=== PATIENT | female | born 1990 | race African-American/Black ===

== ENCOUNTER 2019-10-06 02:45 | Emergency (ER) | payer BC ==
[2019-10-06] MEDS ORDERED: Ondansetron 4 MG/2 ML SDV IVPUSH ONE (03:21)
[2019-10-06] MEDS ORDERED: Lactated Ringers 1,000 ML IV ONE (03:21)
[2019-10-06 03:44] LABS: BLOOD UREA NITROGEN,BUN 11 mg/dL (7.0-18.0); CARBON DIOXIDE,CO2 25.1 mmol/L (21.0-32.0); CHLORIDE,CL 101 mmol/L (98-107); GLUCOSE RANDOM 100 mg/dL (74-106); POTASSIUM,K 3.9 mmol/L (3.5-5.1); SODIUM,NA 136 mmol/L (136-145)
--- NOTE | 2019-10-06 03:45 | EDM.PDOC ---
ED HPI GENERAL MEDICAL PROBLEM - General Chief Complaint: Gastrointestinal Problem Stated Complaint: FEELS WEEK Time Seen by Provider: 10/06/19 02:47 Source of Information: Reports: Patient History Limitations: Reports: No Limitations - History of Present Illness INITIAL COMMENTS - FREE TEXT/NARRATIVE: 28-year-old female with history of hypertension, A2, GA 4 weeks presents feeling nauseous and vomiting for 2 days. She feels like she wants to pass out. She has had 6 episodes of nonbloody vomitus over the last 2 days. She denies fever, chills, abdominal pain, vaginal bleeding, pelvic pain, dysuria, chest pain, shortness of breath, palpitations, back pain, sore throat, runny nose, headache. She does admit to having chills. She has yet to see Kenya Simms for her . She has not taking any medications for her vomiting. ROS: A 10-point review of systems, other than pertinent positives and negatives as stated per HPI, is otherwise negative Past medical history: No additional pertinent history Past Surgical history: No additional pertinent history Social history: No additional pertinent history Family history: No additional pertinent history PHYSICAL EXAM General: AOx4, GCS = 15, No distress HEENT: dry mucous membrane Neck: supple, no meningismus, no Kernig or Brudzinski Cardiac: S1S2 RRR Respiratory: CTAB, no crackles or rales, no wheezing Abdomen: Soft, nontender, no rebound or guarding, nondistended, no pulsatile mass. Back: nontender Musculoskeletal: NVI distally, no deformity Neuro: No focal deficits, CN 2 - 12 WNL. - Related Data Allergies Allergy/AdvReac Type Severity Reaction Status Date / Time seafoods Allergy Swelling Uncoded 10/06/19 03:08 Home Meds: Home Meds Acetaminophen [Tylenol Extra Strength] 500 mg PO Q4H PRN #30 tab 10/16/13 [Rx] Losartan/Hydrochlorothiazide [Losartan-HCTZ 50-12.5 MG] 1 mg PO DAILY 10/06/19 [History] Ondansetron [Zofran ODT] 4 mg PO Q6H PRN #12 tab.dis 10/06/19 [Rx] Past Medical History - Past Health History Medical/Surgical History: Denies Medical/Surgical History Cardiovascular History: Reports: Hypertension Social & Family History - Tobacco Use Smoking Status *Q: Never Smoker Second Hand Smoke Exposure: No - Caffeine Use Caffeine Use: Reports: None ED ROS GENERAL - Review of Systems Review Of Systems: Comprehensive ROS is negative, except as noted in HPI. ED EXAM - Physical Exam Exam: See Below (see dictation) ED DELIVERY OF - Related Past History Related Past History: HTN Course - Vital Signs Last Recorded V/S: Last Vital Signs Temp 97.8 F 10/06/19 03:05 Pulse 77 10/06/19 04:06 Resp 16 10/06/19 04:06 BP 140/80 10/06/19 04:06 Pulse Ox 98 10/06/19 04:06 Orthostatic Blood Pressure [ 143/101 Standing] Orthostatic Blood Pressure [ 156/88 Sitting] Orthostatic Blood Pressure [ 147/97 Supine] - Orders/Labs/Meds Orders: Active Orders 24 hr Category Date Time Status Cardiac Monitoring [RC] . DIRECTED Care 10/06/19 02:48 Active Orthostatic Vital Signs [RC] ASDIRECTED Care 10/06/19 02:48 Active Pulse Oximetry [RC] ASDIRECTED Care 10/06/19 02:48 Active Labs: Laboratory Tests 10/06/19 10/06/19 10/06/19 Range/Units 03:15 03:15 04:20 WBC 14.12 H (4.0-11.0) K/uL RBC 4.66 (4.30-5.90) M/uL Hgb 12.1 (12.0-16.0) g/dL Hct 33.8 L (36.0-46.0) % MCV 72.5 L (80.0-98.0) fL MCH 26.0 L (27.0-32.0) pg MCHC 35.8 (31.0-37.0) g/dL RDW Std Deviation 42.6 (28.0-62.0) fl RDW Coeff of Zeke 16 H (11.0-15.0) % Plt Count 285 (150-400) K/uL MPV 10.30 (7.40-12.00) fL Neut % (Auto) 73.9 (48.0-80.0) % Lymph % (Auto) 17.9 (16.0-40.0) % Lamb % (Auto) 6.9 (0.0-15.0) % Eos % (Auto) 1.0 (0.0-7.0) % Baso % (Auto) 0.3 (0.0-1.5) % Neut # (Auto) 10.4 H (1.4-5.7) K/uL Lymph # (Auto) 2.5 H (0.6-2.4) K/uL Lamb # (Auto) 1.0 H (0.0-0.8) K/uL Eos # (Auto) 0.1 (0.0-0.7) K/uL Baso # (Auto) 0.0 (0.0-0.1) K/uL Nucleated RBC % 0.0 /100WBC Nucleated RBCs # 0 K/uL Sodium 136 (136-145) mmol/L Potassium 3.9 (3.5-5.1) mmol/L Chloride 101 (98-107) mmol/L Carbon Dioxide 25.1 (21.0-32.0) mmol/L BUN 11 (7.0-18.0) mg/dL Creatinine 0.9 (0.6-1.0) mg/dL Est Cr Clr Drug Dosing 82.25 mL/min Estimated GFR (MDRD) > 60.0 ml/min Glucose 100 (74-106) mg/dL Calcium 9.9 (8.5-10.1) mg/dL Total Bilirubin 0.3 (0.2-1.0) mg/dL AST 9 L (15-37) IU/L ALT 14 (14-63) IU/L Alkaline Phosphatase 62 (46-116) U/L Total Protein 7.5 (6.4-8.2) g/dL Albumin 3.6 (3.4-5.0) g/dL Globulin 3.9 (2.6-4.0) g/dL Albumin/Globulin Ratio 0.9 (0.9-1.6) Urine Color YELLOW Urine Appearance CLEAR Urine pH 6.5 (5.0-8.0) Ur Specific [place] 1.010 (1.001-1.035) Urine Protein NEGATIVE (NEGATIVE) mg/dL Urine Glucose (UA) NEGATIVE (NEGATIVE) mg/dL Urine Ketones NEGATIVE (NEGATIVE) mg/dL Urine Occult Blood NEGATIVE (NEGATIVE) Urine Nitrite NEGATIVE (NEGATIVE) Urine Bilirubin NEGATIVE (NEGATIVE) Urine Urobilinogen 0.2 (<2.0) EU/dL Ur Leukocyte Esterase NEGATIVE (NEGATIVE) Urine RBC 0-1 (0-2/HPF) Urine WBC 0-1 (0-5/HPF) Ur Epithelial Cells RARE (NONE-FEW) Urine Bacteria RARE (NEGATIVE) Meds: Medications Discontinued Medications Generic Name Dose Route Start Last Admin Trade Name Freq PRN Reason Stop Dose Admin Lactated Ringer's 1,000 mls @ 999 mls/hr 10/06/19 03:21 10/06/19 03:30 Ringers, Lactated IV 10/06/19 04:21 999 mls/hr .BOLUS ONE Administration Ondansetron HCl 4 mg 10/06/19 03:21 10/06/19 03:30 Zofran IVPUSH 10/06/19 03:22 4 mg ONETIME ONE Administration - Re-Assessments/Exams Free Text/Narrative Re-Assessment/Exam: 10/06/19 04:18 I reassessed the patient, who is feeling much better after IV fluids and Zofran. Their vitals are stable at this time. Their MAP = 100, shock index between 0.6, which is normal. 10/06/19 04:50 After IV fluids in the ER, she improved and is currently stable for discharge. She has not vomited in the ER. I performed a repeat exam and did not appreciate new abnormal findings. Patient exhibits normal vital signs and has a normal gait on road test. I advised the patient to return to the ER for reevaluation if symptoms worsened, including fever, worsening pain, or any other worrisome symptoms. I instructed the patient to follow up with her ALARM INVESTIGATOR within 2-3 days. MEDICAL DECISION MAKING: I reviewed the patients past medical records, lab and radiographic findings. I discussed the case with the patient. My differential diagnosis included: Dehydration, electrolyte abnormality, hyperemesis gravidarum, UTI. Patient exhibited leukocytosis, likely secondary to acute stress from vomiting. She has no fever, tachycardia or other signs of SIRS. Her urine did not show a UTI. Her MAP after IV fluids = 100, her shock index is 0.6, which is within normal range. I do not suspect need for further work-up at this time. Departure - Departure Time of Disposition: 04:50 Disposition: Home, Self-Care 01 Condition: Good Clinical Impression: Vomiting, First trimester - Discharge Information *PRESCRIPTION DRUG MONITORING PROGRAM REVIEWED*: Not Applicable *COPY OF PRESCRIPTION DRUG MONITORING REPORT IN PATIENT JUANA: Not Applicable Prescriptions: Ondansetron [Zofran ODT] 4 mg PO Q6H PRN #12 tab.dis PRN Reason: Vomiting Instructions: First Trimester of , [id number], Nausea and Vomiting, Adult, [id number] Referrals: Esau Dueñas MD [Physician] - 2 Weeks Forms: ED Department Discharge Additional Instructions: The need for follow-up, as well as the timing and circumstances, are variable depending upon the specifics of your emergency department visit. If you don't have a primary care physician on staff, we will provide you with a referral. We always advise you to contact your personal physician following an emergency department visit to inform them of the circumstance of the visit and for follow-up with them and/or the need for any referrals to a consulting specialist. The emergency department will also refer you to a specialist when appropriate. This referral assures that you have the opportunity for follow-up care with a specialist. All of these measure are taken in an effort to provide you with optimal care, which includes your follow-up. Under all circumstances we always encourage you to contact your private physician who remains a resource for coordinating your care. When calling for follow-up care, please make the office aware that this follow-up is from your recent emergency room visit. If for any reason you are refused follow-up, please contact the [facility] Emergency Department at and asked to speak to the emergency department charge nurse. [facility] [address] [place] [id number] Sepsis Event Note (ED) - Evaluation Sepsis Screening Result: No Definite Risk - Focused Exam Vital Signs: Vital Signs Temp Pulse Resp BP Pulse Ox 10/06/19 04:06 77 16 140/80 98 10/06/19 03:05 97.8 F 83 20 147/97 H 98 - My Orders Last 24 Hours: My Active Orders 10/06/19 02:48 Cardiac Monitoring [RC] . DIRECTED Orthostatic Vital Signs [RC] ASDIRECTED Pulse Oximetry [RC] ASDIRECTED - Assessment/Plan Last 24 Hours: My Active Orders 10/06/19 02:48 Cardiac Monitoring [RC] . DIRECTED Orthostatic Vital Signs [RC] ASDIRECTED Pulse Oximetry [RC] ASDIRECTED
[2019-10-06 05:11] VITALS: BP 140/88; PULSE 78
== END 2019-10-06 04:50 | disposition home or self-care (01) ==
LOC: MW.ED 02:45
DX: O21.9 Vomiting of pregnancy, unspecified (principal); O10.911 Unspecified pre-existing hypertension complicating pregnancy, first trimester; Z91.013 Allergy to seafood; Z79.899 Other long term (current) drug therapy
CPT/HCPCS: 36415; 80053; 81001; 85025; 96361; 96374; 99284; J2405; J7120; 99283

== ENCOUNTER 2019-11-29 08:01 | Day surgery (SDC) | payer BC ==
[~2019-11-29 08:01] MED LIST: Lactated Ringers 1,000 ML IV SCH
[2019-11-29] MEDS ORDERED: Ondansetron 4 MG/2 ML SDV ONE (08:35)
--- NOTE | 2019-11-29 08:58 | PCM.PREANE ---
Preanesthetic Assessment - Anesthesia/Transfusion/Family Hx Anesthesia History: Prior Anesthesia Without Reaction Family History of Anesthesia Reaction: No Transfusion History: No Prior Transfusion(s) Intubation History: Unknown - Review of Systems General: No Symptoms Pulmonary: No Symptoms Cardiovascular: No Symptoms Gastrointestinal: No Symptoms Neurological: No Symptoms Other: Reports: None - Physical Assessment Height: 5 ft 3 in Weight: 104.78 kg ASA Class: 2 Mental Status: Alert & Oriented x3 Airway Class: Mallampati = 1 Dentition: Reports: Normal Dentition Thyro-Mental Finger Breadths: 3 Mouth Opening Finger Breadths: 3 ROM/Head Extension: Full Lungs: Clear to Auscultation, Normal Respiratory Effort Cardiovascular: Regular Rate, Regular Rhythm - Allergies Allergies/Adverse Reactions: Allergies Allergy/AdvReac Type Severity Reaction Status Date / Time seafoods Allergy Swelling Uncoded 11/26/19 08:55 - Blood Blood Available: No - Anesthesia Plan Pre-Op Medication Ordered: None - Acknowledgements Anesthesia Type Planned: Spinal (saddle block) Pt an Appropriate Candidate for the Planned Anesthesia: Yes Alternatives and Risks of Anesthesia Discussed w Pt/Guardian: Yes Pt/Guardian Understands and Agrees with Anesthesia Plan: Yes PreAnesthesia Questionnaire - Past Health History Medical/Surgical History: Denies Medical/Surgical History HEENT History: Reports: None Cardiovascular History: Reports: Hypertension Respiratory History: Reports: None Gastrointestinal History: Reports: None Genitourinary History: Reports: None PLUMBER CUB History: Reports: (15 weeks - incompetent cervix) Musculoskeletal History: Reports: None Neurological History: Reports: None Psychiatric History: Reports: None Endocrine/Metabolic History: Reports: Obesity/BMI 30+ (BMI 40.9) Hematologic History: Reports: None Immunologic History: Reports: None Dermatologic History: Reports: None - Infectious Disease History Infectious Disease History: Reports: None - Past Surgical History Head Surgeries/Procedures: Reports: None HEENT Surgical History: Reports: None Cardiovascular Surgical History: Reports: None Respiratory Surgical History: Reports: None GI Surgical History: Reports: None Female Surgical History: Reports: None Musculoskeletal Surgical History: Reports: Other (See Below) Other Musculoskeletal Surgeries/Procedures:: states had an abcess from leg removed surgically - SUBSTANCE USE Tobacco Use Status *Q: Never Tobacco User - HOME MEDS Home Medications: Home Meds Acetaminophen [Tylenol Extra Strength] 500 mg PO Q4H PRN #30 tab 10/16/13 [Rx] Losartan/Hydrochlorothiazide [Losartan-HCTZ 50-12.5 MG] 1 mg PO DAILY 10/06/19 [History] Ondansetron [Zofran ODT] 4 mg PO Q6H PRN #12 tab.dis 10/06/19 [Rx] Mv-Mn/Iron/FA/Herbal/Digestive [ One Tablet] 1 tab PO DAILY 11/26/19 [History] - CURRENT (IN HOUSE) MEDS Current Meds: Current Medications Lactated Ringer's (Ringers, Lactated) 1,000 mls @ 125 mls/hr IV ASDIRECTED MIRELLA Discontinued Medications Ondansetron HCl (Zofran) Confirm Administered Dose 4 mg .ROUTE .STK-MED ONE Stop: 11/29/19 08:36
[2019-11-29] MEDS ORDERED: fentaNYL 100 MCG/2 ML SDV ONE (10:36)
[2019-11-29] MEDS ORDERED: Propofol 200 MG/20 ML SDV ONE (10:39)
--- NOTE | 2019-11-29 10:51 | PCM.OPNOTE ---
- General Post-Op/Procedure Note Date of Surgery/Procedure: 11/29/19 Operative Procedure(s): Ivy Cerclage Pre Op Diagnosis: Cevical incomptance Post-Op Diagnosis: Same Anesthesia Technique: Spinal Primary Surgeon: Esau Dueñas EBL in mLs: 20 Complications: None Condition: Good
--- NOTE | 2019-11-29 10:52 | PCM.DCSUM1 ---
Discharge Summary - Hospital Course Diagnosis: Stroke: No - Discharge Data Discharge Date: 11/29/19 Discharge Disposition: Home, Self-Care 01 Condition: Good - Referral to Home Health Primary Care Physician: Esau Dueñas MD - Patient Summary/Data Operative Procedure(s) Performed: Cata Bernal - Patient Instructions Diet: Usual Diet as Tolerated Activity: As Tolerated Showering/Bathing: May Shower - Discharge Plan Home Medications: Home Meds Acetaminophen [Tylenol Extra Strength] 500 mg PO Q4H PRN #30 tab 10/16/13 [Rx] Losartan/Hydrochlorothiazide [Losartan-HCTZ 50-12.5 MG] 1 mg PO DAILY 10/06/19 [History] Ondansetron [Zofran ODT] 4 mg PO Q6H PRN #12 tab.dis 10/06/19 [Rx] Mv-Mn/Iron/FA/Herbal/Digestive [ One Tablet] 1 tab PO DAILY 11/26/19 [History] - Discharge Summary/Plan Comment DC Time >30 min.: Yes - General Info Date of Service: 11/29/19 Functional Status: Reports: Pain Controlled - Review of Systems General: Reports: No Symptoms HEENT: Reports: No Symptoms Pulmonary: Reports: No Symptoms Cardiovascular: Reports: No Symptoms Gastrointestinal: Reports: No Symptoms Genitourinary: Reports: No Symptoms Musculoskeletal: Reports: No Symptoms Skin: Reports: No Symptoms Neurological: Reports: No Symptoms Psychiatric: Reports: No Symptoms - Patient Data Vitals - Most Recent: Last Vital Signs Temp 36.6 C 11/29/19 08:45 Pulse 113 H 11/29/19 08:45 Resp 15 11/29/19 08:45 BP 146/92 H 11/29/19 08:45 Pulse Ox 98 11/29/19 08:45 Weight - Most Recent: 104.78 kg Lab Results - Last 24 hrs: Laboratory Results - last 24 hr 11/29/19 11/29/19 Range/Units 08:41 08:41 WBC 12.96 H (4.0-11.0) K/uL RBC 4.72 (4.30-5.90) M/uL Hgb 12.5 (12.0-16.0) g/dL Hct 35.4 L (36.0-46.0) % MCV 75.0 L (80.0-98.0) fL MCH 26.5 L (27.0-32.0) pg MCHC 35.3 (31.0-37.0) g/dL RDW Std Deviation 41.6 (28.0-62.0) fl RDW Coeff of Zeke 15 (11.0-15.0) % Plt Count 266 (150-400) K/uL MPV 10.70 (7.40-12.00) fL Nucleated RBC % 0.0 /100WBC Nucleated RBCs # 0 K/uL Blood Type O POSITIVE Antibody Screen NEGATIVE Med Orders - Current: Current Medications Lactated Ringer's (Ringers, Lactated) 1,000 mls @ 125 mls/hr IV ASDIRECTED MIRELLA Last Admin: 11/29/19 08:40 Dose: 125 mls/hr Documented by: Discontinued Medications Fentanyl (Sublimaze) Confirm Administered Dose 100 mcg .ROUTE .STK-MED ONE Stop: 11/29/19 10:37 Ondansetron HCl (Zofran) Confirm Administered Dose 4 mg .ROUTE .STK-MED ONE Stop: 11/29/19 08:36 Propofol (Diprivan 20 Ml) Confirm Administered Dose 200 mg .ROUTE .STK-MED ONE Stop: 11/29/19 10:40 - Exam General: Reports: Alert, Oriented HEENT: Reports: Pupils Equal, Pupils Reactive, EOMI, Mucous Membr. Moist/[place] Neck: Reports: Supple Lungs: Reports: Clear to Auscultation, Normal Respiratory Effort Cardiovascular: Reports: Regular Rate, Regular Rhythm GI/Abdominal Exam: Normal Bowel Sounds, Soft, Non-Tender, No Organomegaly, No Distention, No Abnormal Bruit, No Mass, Pelvis Stable (Female) Exam: Normal External Exam, Normal Speculum Exam, Normal Bimanual Exam Rectal (Female) Exam: Normal Exam, Normal Rectal Tone Back Exam: Reports: Normal Inspection, Full Range of Motion Extremities: Normal Inspection, Normal Range of Motion, Non-Tender, No Pedal Edema, Normal Capillary Refill Skin: Reports: Warm, Dry, Intact Wound/Incisions: Reports: Healing Well Neurological: Reports: No New Focal Deficit Psy/Mental Status: Reports: Alert, Normal Affect, Normal Mood
--- NOTE | 2019-11-29 11:09 | PCM.POSTAN ---
POST ANESTHESIA ASSESSMENT - MENTAL STATUS Mental Status: Alert, Oriented - VITAL SIGNS Vital Signs: Last Vital Signs Temp 37 C 11/29/19 10:46 Pulse 85 11/29/19 11:01 Resp 18 11/29/19 11:01 BP 142/78 H 11/29/19 11:01 Pulse Ox 98 11/29/19 11:01 - RESPIRATORY Respiratory Status: Respiratory Rate WNL, Airway Patent, O2 Saturation Stable - CARDIOVASCULAR CV Status: Pulse Rate WNL, Blood Pressure Stable - GASTROINTESTINAL GI Status: No Symptoms - PAIN Pain Score: 4 - POST OP HYDRATION Hydration Status: Adequate & Stable - OBSERVATIONS Free Text/Narrative:: No anesthesia problems
[2019-11-29] MEDS ORDERED: Acetaminophen/oxyCODONE 325-5 MG Tab PO ONE (11:26)
[2019-11-29 13:39] VITALS: BP 146/82; PULSE 105
--- NOTE | 2019-11-29 13:58 | PCM48HPAN ---
Post Anesthesia Note - EVALUATION WITHIN 48HRS OF ANESTHETIC Vital Signs in Normal Range: Yes Patient Participated in Evaluation: Yes Respiratory Function Stable: Yes Airway Patent: Yes Cardiovascular Function Stable: Yes Hydration Status Stable: Yes Pain Control Satisfactory: Yes Nausea and Vomiting Control Satisfactory: Yes Mental Status Recovered: Yes Vital Signs: Last Vital Signs Temp 37 C 11/29/19 10:46 Pulse 105 H 11/29/19 13:38 Resp 15 11/29/19 13:38 BP 146/82 H 11/29/19 13:38 Pulse Ox 99 11/29/19 13:38 - COMMENTS/OBSERVATIONS Free Text/Narrative:: No anesthesia problems
--- NOTE | 2019-11-30 09:04 | OR ---
SURGEON: Esau Dueñas MD DATE OF PROCEDURE: 11/29/2019 PREOPERATIVE DIAGNOSIS: Intrauterine 16 weeks, cervical incompetence. POSTOPERATIVE DIAGNOSIS: Intrauterine 16 weeks, cervical incompetence. OPERATION PERFORMED: Saldaña cerclage. PRIMARY SURGEON: Esau Dueñas MD RESIDENTIAL MENTAL HEALTH WORKER: Vanesa Márquez. ANESTHESIA: Spinal, Jorge Ruiz and Dr. Thompson. ESTIMATED BLOOD LOSS: Less than 20 mL. COMPLICATIONS: None. FINDINGS: Cervical incompetence. INDICATION FOR SURGERY: Smilax referred to the admit note. PROCEDURE IN DETAIL: The patient was brought to the OR, properly identified, and after adequate level of spinal anesthesia, the patient was placed in lithotomy position, prepped and draped in sterile fashion as usual. Straight catheter was used to empty the bladder and then weighted speculum placed in the vagina. Two ring forceps were applied to the anterior and posterior lips of the cervix and using Mersilene band, Saldaña cerclage in a circular fashion passed around the cervix and tied with due amount of tension without too much tension. Once we accomplished that, there was no bleeding. The procedure ended. The instrument and sponge count were correct. The patient tolerated the procedure well, went to recovery room in stable general condition. LUIS / MARY JO /[id number]
== END 2019-11-29 14:05 | disposition home or self-care (01) ==
LOC: MW.SDS 08:01
PROVIDERS: ATTEND Obstetrics & Gynecology
DX: O34.32 Maternal care for cervical incompetence, second trimester (principal); O98.312 Other infections with a predominantly sexual mode of transmission complicating pregnancy, second trimester; I10 Essential (primary) hypertension; E66.09 Other obesity due to excess calories; Z3A.16 16 weeks gestation of pregnancy; Z79.899 Other long term (current) drug therapy; Z68.41 Body mass index [BMI] 40.0-44.9, adult
CPT/HCPCS: 36415; 59320; 85027; 86850; 86900; 86901; A9270; J2405; J2704; J3010; J7120; 00948

== ENCOUNTER 2020-05-02 00:34 | Inpatient (IN) | payer BC ==
[2020-05-02] MEDS ORDERED: Methylergonovine 0.2 MG/1 ML Amp IM PRN (00:59)
[2020-05-02] MEDS ORDERED: Ondansetron 4 MG/2 ML SDV IVPUSH PRN (00:59)
[2020-05-02] MEDS ORDERED: Misoprostol 200 MCG Tab PO PRN (00:59)
[2020-05-02] MEDS ORDERED: Terbutaline 1 MG/ML SDV SUBCUT PRN (00:59)
[2020-05-02] MEDS ORDERED: Water For Irrigation,Sterile 1,000 ML Container IRR PRN (00:59)
[2020-05-02] MEDS ORDERED: Nalbuphine 10 MG/1 ML Vial IVPUSH PRN (00:59)
[2020-05-02] MEDS ORDERED: Carboprost Tromethamine 250 MCG/1 ML Amp IM PRN (00:59)
[2020-05-02] MEDS ORDERED: Sodium Chloride 0.9% 10 ML Syringe FLUSH PRN (00:59)
[2020-05-02] MEDS ORDERED: Sodium Chloride 0.9% 10 ML SDV IV PRN (00:59)
[2020-05-02] MEDS ORDERED: Sodium Chloride 0.9% 2.5 ML Syringe FLUSH PRN (00:59)
[2020-05-02] MEDS ORDERED: Butorphanol 1 MG/ML SDV IVPUSH PRN (00:59)
[2020-05-02] MEDS ORDERED: Lidocaine 1% 50 ML MDV INJECT PRN (00:59)
[2020-05-02] MEDS ORDERED: Tranexamic Acid 1,000 MG in Sodium Chloride 0.9% 100 ML IV PRN (00:59)
[2020-05-02] MEDS ORDERED: Oxytocin/0.9 % Sodium Chloride 30 UNIT/500 ML BAG IV SCH ×2 (01:00)
[2020-05-02] MEDS ORDERED: Misoprostol 25 MCG (1/4 of 100 MCG) Tab VAG PRN ×2 (01:30→05:30)
[2020-05-02] MEDS ORDERED: Ampicillin 2 GM in Sodium Chloride 0.9% 100 ML IV ONE ×2 (01:30→17:45)
[2020-05-02] MEDS ORDERED: Misoprostol 25 MCG (1/4 of 100 MCG) Tab PO PRN ×2 (01:30→05:30)
[2020-05-02] MEDS: Lactated Ringers 1,000 ML IV SCH ×3 (01:50→11:31)
[2020-05-02] MEDS ORDERED: hydrOXYzine HCl 25 MG Tab PO ONE (02:41)
--- NOTE | 2020-05-02 03:52 | PCM.LDHP ---
L&D History of Present Illness - General Date of Service: 05/02/20 Admit Problem/Dx: Patient Status Order with Admit Dx/Problem 05/02/20 00:59 Patient Status [ADT] Routine Admission Diagnosis/Problem Admission Diagnosis/Problem 05/02/20 03:38 presenting to L&D at 37 4/7 weeks for induction of labor due to a complicated by chronic hypertension and history of incompetent cervix. She had a cerclage placed on 11/29/19; it was removed in-office by Dr. Dueñas on 02/26/20. Her hypertension is currently managed with 60 mg nifedipine PO daily and hydrochlorothiazide 12.5mg PO daily. Growth ultrasound on 03/24/20 noted EFW 2224 grams (91st percentile). She has had weekly NSTs since 32 weeks. O+, Rubella immune, GBS negative 05/02/20 03:56 Source of Information: Patient History Limitations: Reports: No Limitations - Related Data Allergies/Adverse Reactions: Allergies Allergy/AdvReac Type Severity Reaction Status Date / Time shellfish derived Allergy Airway Verified 05/02/20 01:55 Tightness seafoods Allergy Swelling Uncoded 11/26/19 08:55 Home Medications: Home Meds Acetaminophen [Tylenol Extra Strength] 500 mg PO Q4H PRN #30 tab 10/16/13 [Rx] Mv-Mn/Iron/FA/Herbal/Digestive [ One Tablet] 1 tab PO DAILY 11/26/19 [History] hydroCHLOROthiazide [Hydrochlorothiazide] 1 cap PO DAILY 03/31/20 [History] Past Medical History - Past Health History Medical/Surgical History: Denies Medical/Surgical History HEENT History: Reports: None Cardiovascular History: Reports: Hypertension Respiratory History: Reports: None Gastrointestinal History: Reports: None Genitourinary History: Reports: None 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 - incompetent cervix) Musculoskeletal History: Reports: None Neurological History: Reports: None Psychiatric History: Reports: None Endocrine/Metabolic History: Reports: Obesity/BMI 30+ (BMI 40.9) Hematologic History: Reports: None Immunologic History: Reports: None Dermatologic History: Reports: None - Infectious Disease History Infectious Disease History: Reports: None - Past Surgical History Head Surgeries/Procedures: Reports: None HEENT Surgical History: Reports: None Cardiovascular Surgical History: Reports: None Respiratory Surgical History: Reports: None GI Surgical History: Reports: None Female Surgical History: Reports: None Musculoskeletal Surgical History: Reports: Other (See Below) Other Musculoskeletal Surgeries/Procedures:: states had an abcess from leg removed surgically Social & Family History - Caffeine Use Caffeine Use: Reports: None H&P Review of Systems - Review of Systems: Review Of Systems: See Below General: Reports: No Symptoms HEENT: Reports: No Symptoms Pulmonary: Reports: No Symptoms Cardiovascular: Reports: No Symptoms Gastrointestinal: Reports: No Symptoms Genitourinary: Reports: No Symptoms Musculoskeletal: Reports: No Symptoms Skin: Reports: No Symptoms Psychiatric: Reports: No Symptoms Neurological: Reports: No Symptoms Hematologic/Lymphatic: Reports: No Symptoms Immunologic: Reports: No Symptoms L&D Exam - Exam Exam: See Below - Vital Signs Weight: 262 lb - OB Specific Movement: Active Heart Tones: Present Heart Rate (FHR) Variability: Moderate (6-25 bmp) Presentation: Vertex - Best Score Best Score Cervix Position: Posterior Best Score Consistency: Medium Best Score Effacement: 31-50% Best Score Dilation: 3-4 cm Best Score 's Station: -2 Best Score Total: 5 - Exam General: Alert, Oriented Lungs: Normal Respiratory Effort Cardiovascular: Regular Rate, Regular Rhythm GI/Abdominal Exam: Soft, Non-Tender Rectal Exam: Deferred Genitourinary: Deferred Back Exam: Normal Inspection, Full Range of Motion Extremities: Normal Inspection, Normal Range of Motion, Non-Tender, Normal Capillary Refill Skin: Warm, Dry, Intact Neurological: Strength Equal Bilateral, Normal Speech, Normal Tone, Sensation Intact Psychiatric: Alert, Normal Affect, Normal Mood - Patient Data Lab Results Last 24 hrs: Laboratory Results - last 24 hr 05/02/20 05/02/20 05/02/20 Range/Units 00:50 00:50 01:15 WBC 9.17 (4.0-11.0) K/uL RBC 4.91 (4.30-5.90) M/uL Hgb 13.0 (12.0-16.0) g/dL Hct 36.2 (36.0-46.0) % MCV 73.7 L (80.0-98.0) fL MCH 26.5 L (27.0-32.0) pg MCHC 35.9 (31.0-37.0) g/dL RDW Std Deviation 39.0 (28.0-62.0) fl RDW Coeff of Zeke 15 (11.0-15.0) % Plt Count 290 (150-400) K/uL MPV 12.20 H (7.40-12.00) fL Nucleated RBC % 0.0 /100WBC Nucleated RBCs # 0 K/uL SARS-CoV-2 RNA (NICOL) NEGATIVE (NEGATIVE) Blood Type O POSITIVE Antibody Screen NEGATIVE Result Diagrams: 05/02/20 00:50 - Problem List (1) Supervision of normal IUP (intrauterine ) in multigravida SNOMED Code(s): 475945808, 618670664, 083109616 ICD Code: Z34.80 - ENCOUNTER FOR SUPRVSN OF NORMAL , UNSP TRIMESTER Status: Acute Priority: High Current Visit: Yes Qualifiers: Trimester: third trimester Qualified Code(s): Z34.83 - Encounter for supervision of other normal , third trimester (2) Chronic hypertension affecting SNOMED Code(s): 59560285 ICD Code: O10.919 - UNSP PRE-EXISTING HTN COMP , UNSP TRIMESTER Status: Acute Priority: High Current Visit: Yes Problem List Initiated/Reviewed/Updated: Yes Orders Last 24hrs: Active Orders 24 hr Category Date Time Status Patient Status [ADT] Routine ADT 05/02/20 00:59 Active Bedrest Bathroom Privileges [RC] ASDIRECTED Care 05/02/20 00:59 Active Communication Order [RC] ASDIRECTED Care 05/02/20 00:59 Active Communication Order [RC] ASDIRECTED Care 05/02/20 00:59 Active Communication Order [RC] ASDIRECTED Care 05/02/20 00:59 Active Heart Tones [RC] CONTINUOUS Care 05/02/20 00:59 Active Non Stress Test [RC] PER UNIT ROUTINE Care 05/02/20 00:59 Active May Shower [RC] ASDIRECTED Care 05/02/20 00:59 Active Notify Provider [RC] PRN Care 05/02/20 00:59 Active Notify Provider [RC] PRN Care 05/02/20 00:59 Active Notify Provider [RC] PRN Care 05/02/20 00:59 Active Notify Provider [RC] STAT Care 05/02/20 00:59 Active Oxygen Therapy [RC] ASDIRECTED Care 05/02/20 00:59 Active Peripheral IV Care [RC] PRN Care 05/02/20 00:59 Active Up ad Audra [RC] ASDIRECTED Care 05/02/20 00:59 Active Vaginal Exam [RC] PRN Care 05/02/20 00:59 Active Vital Signs [RC] PER UNIT ROUTINE Care 05/02/20 00:59 Active Regular Diet [DIET] Diet 05/02/20 Breakfast Active RPR (SYPHILIS SERO) W/ RFLX [REF] Routine Lab 05/02/20 00:50 Received Ampicillin 1 gm Med 05/02/20 05:30 Active Sodium Chloride 0.9% [Normal Saline] 50 ml IV Q4H Butorphanol [Stadol] Med 05/02/20 00:59 Active 1 mg IVPUSH Q1H PRN Carboprost Tromethamine [Hemabate DS] Med 05/02/20 00:59 Active 250 mcg IM ASDIRECTED PRN Lactated Ringers [Ringers, Lactated] 1,000 ml Med 05/02/20 01:00 Active IV ASDIRECTED Lidocaine 1% [Xylocaine 1%] Med 05/02/20 00:59 Active 50 ml INJECT ONETIME PRN Methylergonovine [Methergine] Med 05/02/20 00:59 Active 0.2 mg IM ASDIRECTED PRN Nalbuphine [Nubain] Med 05/02/20 00:59 Active 10 mg IVPUSH Q1H PRN Ondansetron [Zofran] Med 05/02/20 00:59 Active 4 mg IVPUSH Q6H PRN Oxytocin/0.9 % Sodium Chloride [Oxytocin 30 Unit/500 ML Med 05/02/20 01:00 Active -NS] 30 unit in 500 ml IV TITRATE Oxytocin/0.9 % Sodium Chloride [Oxytocin 30 Unit/500 ML Med 05/02/20 01:00 Active -NS] 30 unit in 500 ml IV TITRATE Sodium Chloride 0.9% [Normal Saline] Med 05/02/20 00:59 Active 10 ml IV ASDIRECTED PRN Sodium Chloride 0.9% [Saline Flush] Med 05/02/20 00:59 Active 10 ml FLUSH ASDIRECTED PRN Sodium Chloride 0.9% [Saline Flush] Med 05/02/20 00:59 Active 2.5 ml FLUSH ASDIRECTED PRN Terbutaline [Brethine] Med 05/02/20 00:59 Active 0.25 mg SUBCUT ASDIRECTED PRN Tranexamic Acid [Cyklokapron] 1,000 mg Med 05/02/20 00:59 Active Sodium Chloride 0.9% [Normal Saline] 100 ml IV ONETIME Water For Irrigation,Sterile [Sterile Water for Med 05/02/20 00:59 Active Irrigation] 1,000 ml IRR ASDIRECTED PRN miSOPROStoL [Cytotec] Med 05/02/20 00:59 Active 200 mcg PO ONETIME PRN miSOPROStoL [Cytotec] Med 05/02/20 01:30 Active 25 mcg PO ONETIME PRN miSOPROStoL [Cytotec] Med 05/02/20 05:30 Active 25 mcg PO Q4H PRN miSOPROStoL [Cytotec] Med 05/02/20 01:30 Active 25 mcg VAG ONETIME PRN miSOPROStoL [Cytotec] Med 05/02/20 05:30 Active 25 mcg VAG Q4H PRN Scalp Electrode [WOMSER] Per Unit Routine Oth 05/02/20 00:59 Ordered Medication Administration Instruction [OM.PC] Q3H Oth 05/02/20 01:00 Ordered Peripheral IV Insertion Adult [OM.PC] Routine Oth 05/02/20 00:59 Ordered Resuscitation Status Routine Resus Stat 05/02/20 00:59 Ordered Medication Orders Butorphanol Tartrate (Butorphanol 1 Mg/Ml Sdv) 1 mg IVPUSH Q1H PRN PRN Reason: Pain Carboprost Tromethamine (Carboprost Tromethamine 250 Mcg/1 Ml Amp) 250 mcg IM ASDIRECTED PRN PRN Reason: Post Hemorrhage Oxytocin/Sodium Chloride (Oxytocin 30 Unit/500 Ml-Ns) 30 unit in 500 mls @ 999 mls/hr IV TITRATE MIRELLA Tranexamic Acid 1,000 mg/ (Sodium Chloride) 110 mls @ 660 mls/hr IV ONETIME PRN PRN Reason: Bleeding Oxytocin/Sodium Chloride (Oxytocin 30 Unit/500 Ml-Ns) 30 unit in 500 mls @ 2 mls/hr IV TITRATE MIRELLA; Protocol Ampicillin Sodium 1 gm/ Sodium (Chloride) 50 mls @ 100 mls/hr IV Q4H [facility] Lactated Ringer's (Ringers, Lactated) 1,000 mls @ 150 mls/hr IV ASDIRECTED MIRELLA Last Admin: 05/02/20 01:50 Dose: 150 mls/hr Documented by: MARION Lidocaine HCl (Lidocaine 1% 50 Ml Mdv) 50 ml INJECT ONETIME PRN PRN Reason: Laceration repair Methylergonovine Maleate (Methylergonovine 0.2 Mg/1 Ml Amp) 0.2 mg IM ASDIRECTED PRN PRN Reason: Post Hemorrhage Misoprostol (Misoprostol 200 Mcg Tab) 200 mcg PO ONETIME PRN PRN Reason: Post Hemorrhage Misoprostol (Misoprostol 25 Mcg (1/4 Of 100 Mcg) Tab) 25 mcg VAG ONETIME PRN PRN Reason: Cervical Ripening Last Admin: 05/02/20 01:58 Dose: 25 mcg Documented by: MARION Misoprostol (Misoprostol 25 Mcg (1/4 Of 100 Mcg) Tab) 25 mcg VAG Q4H PRN PRN Reason: Cervical Ripening Misoprostol (Misoprostol 25 Mcg (1/4 Of 100 Mcg) Tab) 25 mcg PO ONETIME PRN PRN Reason: Cervical Ripening Last Admin: 05/02/20 01:58 Dose: 25 mcg Documented by: MARION Misoprostol (Misoprostol 25 Mcg (1/4 Of 100 Mcg) Tab) 25 mcg PO Q4H PRN PRN Reason: Cervical Ripening Nalbuphine HCl (Nalbuphine 10 Mg/1 Ml Vial) 10 mg IVPUSH Q1H PRN PRN Reason: Pain (severe 7-10) Ondansetron HCl (Ondansetron 4 Mg/2 Ml Sdv) 4 mg IVPUSH Q6H PRN PRN Reason: Nausea/Vomiting Sodium Chloride (Sodium Chloride 0.9% 10 Ml Syringe) 10 ml FLUSH ASDIRECTED PRN PRN Reason: Keep Vein Open Sodium Chloride (Sodium Chloride 0.9% 2.5 Ml Syringe) 2.5 ml FLUSH ASDIRECTED PRN PRN Reason: Keep Vein Open Sodium Chloride (Sodium Chloride 0.9% 10 Ml Sdv) 10 ml IV ASDIRECTED PRN PRN Reason: IV Use Sterile Water (Water For Irrigation,Sterile 1,000 Ml Container) 1,000 ml IRR ASDIRECTED PRN PRN Reason: delivery Terbutaline Sulfate (Terbutaline 1 Mg/Ml Sdv) 0.25 mg SUBCUT ASDIRECTED PRN PRN Reason: Tacysystole Assessment/Plan Comment:: Admit A: presenting to L&D at 37 4/7 weeks for induction of labor due to a complicated by chronic hypertension and history of incompetent cervix. She had a cerclage placed on 11/29/19; it was removed in-office by Dr. Dueñas on 02/26/20. Her hypertension is currently managed with 60 mg nifedipine PO daily and hydrochlorothiazide 12.5mg PO daily. Growth ultrasound on 03/24/20 noted EFW 2224 grams (91st percentile). She has had weekly NSTs since 32 weeks. O+, Rubella immune, GBS negative P: Anticipate ; cytotec to pitocin PRN; epidural PRN; Dr. Dueñas updated.
[2020-05-02] MEDS ORDERED: Ampicillin 1 GM in Sodium Chloride 0.9% 50 ML IV SCH (05:30)
[2020-05-02] MEDS ORDERED: Ampicillin 1 GM Vial ONE (06:03)
[2020-05-02] MEDS ORDERED: Sodium Chloride 0.9% 50 ML ONE (06:03)
[2020-05-02] MEDS ORDERED: Misoprostol 25 MCG (1/4 of 100 MCG) Tab PO ONE (09:25)
[2020-05-02] MEDS ORDERED: Bupivicaine/fentaNYL/NS 250 ML ONE (10:39)
[2020-05-02] MEDS ORDERED: Ropivacaine 0.2% PF 2 MG/ML 20 ML SDV ONE (10:39)
[2020-05-02] MEDS: Ampicillin 1 GM in Sodium Chloride 0.9% 50 ML IV SCH ×2 (11:10→15:15)
[2020-05-02] MEDS ORDERED: Witch Hazel Medicated Pads 40/Jar TOP PRN (17:26)
[2020-05-02] MEDS ORDERED: Lanolin 100% Cream 7 GM Tube TOP PRN (17:26)
[2020-05-02] MEDS ORDERED: oxyCODONE 5 MG Tab PO PRN (17:26)
[2020-05-02] MEDS ORDERED: Ibuprofen 400 MG Tab PO PRN (17:26)
[2020-05-02] MEDS ORDERED: Bisacodyl 10 MG Supp RECTAL PRN (17:26)
[2020-05-02] MEDS ORDERED: Docusate Sodium 100 MG Cap PO PRN (17:26)
[2020-05-02] MEDS ORDERED: Acetaminophen 500 MG Tab PO PRN ×2 (17:26)
[2020-05-02] MEDS ORDERED: Benzocaine/Menthol 20%-0.5% Spray 78 GM Cannister TOP PRN (17:26)
[2020-05-02] MEDS ORDERED: Ibuprofen 800 MG Tab PO PRN (17:26)
--- NOTE | 2020-05-02 17:41 | PCM.DEL ---
L & D Note - General Info Date of Service: 05/02/20 Mother's Due Date: 05/19/20 - Delivery Note Labor: Spontaneous, Induced by ARM Cervical Ripening Method: Misoprostil Delivery Outcome: Livebirth Infant Delivery Method: Spontaneous Vaginal Delivery-Single Infant Delivery Mode: Spontaneous Presentation: Left Occiput Anterior (MICHAEL) Nuchal Cord: None Anesthesia Type: Epidural Amniotic Fluid Description: Clear Episiotomy Type: None Laceration: None Placenta: Intact, Manual Removal, Retained Cord: 3 Vessels Estimated Blood Loss: 500 Resuscitation Needed: No [place]: Stimulated, Warmed, [place] Used Score 1 min: 8 Score 5 min: 9 Post Delivery Events: Retained Placenta Second Stage Interventions: Reports: Encouragement Given, Pushing Effectively, Pushing, Feet in Foot Rests Delivery Comments (Free Text/Narrative):: Todd is a 29 yo current at 37+4 weeks gestation (KULDEEP(LMP) 05/19/2020) immediately S/P of viable term NBF S/P IOL due to chronic HTN. O pos, RI, GBS positive with adequate ampicillin prophylaxis in labor. Adequate epidural analgesia. Cephalic presentation. head delivered MICHAEL spontaneously, body following shortly after with the next push. NBF placed to maternal abdomen, warmed, dried, stimulated with spontaneous cries. Umbilical cord left intact for ~1 min, clamped x 2, cut by vianey. Pitocin bolus commenced, gentle cord traction applied for active third stage management. Placenta not birthed spontaneously within [address] Dueñas called to bedside, manual placenta removal completed ~34 min S/P NBF. Placenta intact, [place], 3VC. Perineum inspected, intact. Uterus firm @U. Scant vaginal bleeding noted. EBL ~500 ml. APGARS 8/9. weight 8 lb 2 oz - General Info Date of Service: 05/02/20 Admission Dx/Problem (Free Text): Patient Status Order with Admit Dx/Problem 05/02/20 00:59 Patient Status [ADT] Routine Admission Diagnosis/Problem Admission Diagnosis/Problem 05/02/20 03:38 presenting to L&D at 37 4/7 weeks for induction of labor due to a complicated by chronic hypertension and history of incompetent cervix. She had a cerclage placed on 11/29/19; it was removed in-office by Dr. Dueñas on 02/26/20. Her hypertension is currently managed with 60 mg nifedipine PO daily and hydrochlorothiazide 12.5mg PO daily. Growth ultrasound on 03/24/20 noted EFW 2224 grams (91st percentile). She has had weekly NSTs since 32 weeks. O+, Rubella immune, GBS negative 05/02/20 03:56 Functional Status: Reports: Pain Controlled, Tolerating Diet, Ambulating, Urinating - Review of Systems General: Reports: No Symptoms HEENT: Reports: No Symptoms Pulmonary: Reports: No Symptoms Cardiovascular: Reports: No Symptoms Gastrointestinal: Reports: No Symptoms Genitourinary: Reports: No Symptoms Musculoskeletal: Reports: No Symptoms Skin: Reports: No Symptoms Neurological: Reports: No Symptoms Psychiatric: Reports: No Symptoms - Patient Data Vitals - Most Recent: Hemodynamically stable, afebrile. BP 145/82 (91), HR 118. Temp 98.5 F. Weight - Most Recent: 262 lb Lab Results Last 24 Hours: Laboratory Results - last 24 hr 05/02/20 05/02/20 05/02/20 Range/Units 00:50 00:50 01:15 WBC 9.17 (4.0-11.0) K/uL RBC 4.91 (4.30-5.90) M/uL Hgb 13.0 (12.0-16.0) g/dL Hct 36.2 (36.0-46.0) % MCV 73.7 L (80.0-98.0) fL MCH 26.5 L (27.0-32.0) pg MCHC 35.9 (31.0-37.0) g/dL RDW Std Deviation 39.0 (28.0-62.0) fl RDW Coeff of Zeke 15 (11.0-15.0) % Plt Count 290 (150-400) K/uL MPV 12.20 H (7.40-12.00) fL Nucleated RBC % 0.0 /100WBC Nucleated RBCs # 0 K/uL SARS-CoV-2 RNA (NICOL) NEGATIVE (NEGATIVE) Blood Type O POSITIVE Antibody Screen NEGATIVE Med Orders - Current: Current Medications Acetaminophen (Acetaminophen 500 Mg Tab) 500 mg PO Q4H PRN PRN Reason: Pain Acetaminophen (Acetaminophen 500 Mg Tab) 1,000 mg PO Q4H PRN PRN Reason: Pain Benzocaine/Menthol (Benzocaine/Menthol 20%-0.5% [place] 78 Gm Cannister) 78 gm TOP ASDIRECTED PRN PRN Reason: Perineal Comfort Measure Bisacodyl (Bisacodyl 10 Mg Supp) 10 mg RECTAL ONETIME PRN PRN Reason: Constipation Docusate Sodium (Docusate Sodium 100 Mg Cap) 100 mg PO BID PRN PRN Reason: Constipation Emollient Ointment (Lanolin 100% Cream 7 Gm Tube) 0 gm TOP ASDIRECTED PRN PRN Reason: Sore Nipples Ampicillin Sodium 2 gm/ Sodium (Chloride) 100 mls @ 200 mls/hr IV ONETIME ONE Stop: 05/02/20 17:56 Ibuprofen (Ibuprofen 400 Mg Tab) 400 mg PO Q4H PRN PRN Reason: Pain Ibuprofen (Ibuprofen 800 Mg Tab) 800 mg PO Q6H PRN PRN Reason: Pain Oxycodone HCl (Oxycodone 5 Mg Tab) 5 mg PO Q2H PRN PRN Reason: Pain Witch Emilia (Witch Emilia Medicated Pads 40/Jar) 1 pad TOP ASDIRECTED PRN PRN Reason: comfort care Discontinued Medications Ampicillin Sodium (Ampicillin 1 Gm Vial) Confirm Administered Dose 1 gm .ROUTE .STK-MED ONE Stop: 05/02/20 06:04 Last Admin: 05/02/20 06:26 Dose: 1 gm Documented by: Butorphanol Tartrate (Butorphanol 1 Mg/Ml Sdv) 1 mg IVPUSH Q1H PRN PRN Reason: Pain Carboprost Tromethamine (Carboprost Tromethamine 250 Mcg/1 Ml Amp) 250 mcg IM ASDIRECTED PRN PRN Reason: Post Hemorrhage Hydroxyzine HCl (Hydroxyzine Hcl 25 Mg Tab) 50 mg PO ONETIME ONE Stop: 05/02/20 02:42 Last Admin: 05/02/20 02:52 Dose: 50 mg Documented by: Oxytocin/Sodium Chloride (Oxytocin 30 Unit/500 Ml-Ns) 30 unit in 500 mls @ 999 mls/hr IV TITRATE MIRELLA Tranexamic Acid 1,000 mg/ (Sodium Chloride) 110 mls @ 660 mls/hr IV ONETIME PRN PRN Reason: Bleeding Oxytocin/Sodium Chloride (Oxytocin 30 Unit/500 Ml-Ns) 30 unit in 500 mls @ 2 mls/hr IV TITRATE MIRELLA; Protocol Last Titration: 05/02/20 09:05 Dose: 0 munits/min, 0 mls/hr Documented by: Ampicillin Sodium 2 gm/ Sodium (Chloride) 100 mls @ 200 mls/hr IV ONETIME ONE Stop: 05/02/20 01:59 Last Admin: 05/02/20 01:53 Dose: 200 mls/hr Documented by: Ampicillin Sodium 1 gm/ Sodium (Chloride) 50 mls @ 100 mls/hr IV Q4H MIRELLA Last Admin: 05/02/20 06:27 Dose: Not Given Documented by: Lactated Ringer's (Ringers, Lactated) 1,000 mls @ 150 mls/hr IV ASDIRECTED MIRELLA Last Admin: 05/02/20 11:31 Dose: 150 mls/hr Documented by: Sodium Chloride (Normal Saline) Confirm Administered Dose 50 mls @ as directed .ROUTE .STK-MED ONE Stop: 05/02/20 06:04 Last Admin: 05/02/20 06:26 Dose: 100 mls/hr Documented by: Ampicillin Sodium 1 gm/ Sodium (Chloride) 50 mls @ 100 mls/hr IV Q4H [facility] Last Admin: 05/02/20 15:15 Dose: 100 mls/hr Documented by: Fentanyl/Bupivacaine HCl (Fentanyl/Bupivacaine/Ns 2 Mcg-0.125% 250 Ml) Confirm Administered Dose 250 mls @ as directed .ROUTE .STK-MED ONE Stop: 05/02/20 10:40 Lidocaine HCl (Lidocaine 1% 50 Ml Mdv) 50 ml INJECT ONETIME PRN PRN Reason: Laceration repair Methylergonovine Maleate (Methylergonovine 0.2 Mg/1 Ml Amp) 0.2 mg IM ASDIRECTED PRN PRN Reason: Post Hemorrhage Misoprostol (Misoprostol 200 Mcg Tab) 200 mcg PO ONETIME PRN PRN Reason: Post Hemorrhage Misoprostol (Misoprostol 25 Mcg (1/4 Of 100 Mcg) Tab) 25 mcg VAG ONETIME PRN PRN Reason: Cervical Ripening Last Admin: 05/02/20 01:58 Dose: 25 mcg Documented by: Misoprostol (Misoprostol 25 Mcg (1/4 Of 100 Mcg) Tab) 25 mcg VAG Q4H PRN PRN Reason: Cervical Ripening Misoprostol (Misoprostol 25 Mcg (1/4 Of 100 Mcg) Tab) 25 mcg PO ONETIME PRN PRN Reason: Cervical Ripening Last Admin: 05/02/20 01:58 Dose: 25 mcg Documented by: Misoprostol (Misoprostol 25 Mcg (1/4 Of 100 Mcg) Tab) 25 mcg PO Q4H PRN PRN Reason: Cervical Ripening Misoprostol (Misoprostol 25 Mcg (1/4 Of 100 Mcg) Tab) 50 mcg PO ONETIME ONE Stop: 05/02/20 09:26 Last Admin: 05/02/20 09:38 Dose: 50 mcg Documented by: Nalbuphine HCl (Nalbuphine 10 Mg/1 Ml Vial) 10 mg IVPUSH Q1H PRN PRN Reason: Pain (severe 7-10) Ondansetron HCl (Ondansetron 4 Mg/2 Ml Sdv) 4 mg IVPUSH Q6H PRN PRN Reason: Nausea/Vomiting Ropivacaine (Ropivacaine 0.2% Pf 2 Mg/Ml 20 Ml Sdv) Confirm Administered Dose 20 ml .ROUTE .STK-MED ONE Stop: 05/02/20 10:40 Sodium Chloride (Sodium Chloride 0.9% 10 Ml Syringe) 10 ml FLUSH ASDIRECTED PRN PRN Reason: Keep Vein Open Sodium Chloride (Sodium Chloride 0.9% 2.5 Ml Syringe) 2.5 ml FLUSH ASDIRECTED PRN PRN Reason: Keep Vein Open Sodium Chloride (Sodium Chloride 0.9% 10 Ml Sdv) 10 ml IV ASDIRECTED PRN PRN Reason: IV Use Sterile Water (Water For Irrigation,Sterile 1,000 Ml Container) 1,000 ml IRR ASDIRECTED PRN PRN Reason: delivery Terbutaline Sulfate (Terbutaline 1 Mg/Ml Sdv) 0.25 mg SUBCUT ASDIRECTED PRN PRN Reason: Tacysystole - Exam General: Alert, Oriented, Cooperative, No Acute Distress HEENT: Pupils Equal, Mucous Membr. Moist/[place] Neck: Supple Lungs: Clear to Auscultation, Normal Respiratory Effort Cardiovascular: Regular Rate, Regular Rhythm GI/Abdominal Exam: Normal Bowel Sounds, Soft, Non-Tender, No Organomegaly, No Distention, No Abnormal Bruit, No Mass, Pelvis Stable (Female) Exam: Normal External Exam, Normal Bimanual Exam, Enlarged Uterus ( uterus, firm @U), Vaginal Bleeding (Small rubra lochia, no clots.) Back Exam: Normal Inspection, Full Range of Motion Extremities: Normal Inspection, Normal Range of Motion, Non-Tender, No Pedal Edema, Normal Capillary Refill Skin: Warm, Dry, Intact Neurological: No New Focal Deficit (BLE epidural analgesia) Psy/Mental Status: Alert, Normal Affect, Normal Mood - Problem List & Annotations (1) (spontaneous vaginal delivery) SNOMED Code(s): 712671555 Code(s): O80 - ENCOUNTER FOR FULL-TERM UNCOMPLICATED DELIVERY Status: Acute Priority: High Current Visit: Yes (2) Chronic hypertension affecting SNOMED Code(s): 56776454 Code(s): O10.919 - UNSP PRE-EXISTING HTN COMP , UNSP TRIMESTER Status: Acute Priority: High Current Visit: Yes (3) Lactating mother SNOMED Code(s): 986626387, 285666576 Code(s): Z39.1 - ENCOUNTER FOR CARE AND EXAMINATION OF LACTATING MOTHER S tatus: Acute Priority: High Current Visit: Yes - Problem List Review Problem List Initiated/Reviewed/Updated: Yes - My Orders Last 24 Hours: My Active Orders 05/02/20 Dinner Regular Diet [DIET] 05/02/20 17:26 Patient Status [ADT] Routine May Shower [RC] ASDIRECTED Up ad Audra [RC] ASDIRECTED Vital Signs [RC] PER UNIT ROUTINE Acetaminophen [Tylenol Extra Strength] 1,000 mg PO Q4H PRN Acetaminophen [Tylenol Extra Strength] 500 mg PO Q4H PRN Benzocaine/Menthol [Dermoplast Pain Relief 20%-0.5% [place]] 78 gm TOP ASDIRECTED PRN Docusate Sodium [Colace] 100 mg PO BID PRN Ibuprofen [Motrin] 400 mg PO Q4H PRN Ibuprofen [Motrin] 800 mg PO Q6H PRN Lanolin [Lansinoh HPA] See Dose Instructions TOP ASDIRECTED PRN bisacodyL [Dulcolax] 10 mg RECTAL ONETIME PRN oxyCODONE 5 mg PO Q2H PRN witch Emilia [Tucks] 1 pad TOP ASDIRECTED PRN Assess Lochia [WOMSER] Per Unit Routine Assess Uterine Involution [WOMSER] Per Unit Routine Peripheral IV Discontinue [OM.PC] Routine Resuscitation Status Routine 05/02/20 17:27 Cooling Warming Measures [RC] ASDIRECTED Ampicillin 2 gm Sodium Chloride 0.9% [Normal Saline] 100 ml IV ONETIME Ice Therapy [OM.PC] Per Unit Routine Perineal Care [OM.PC] Per Unit Routine Sitz Bath [OM.PC] Per Unit Routine 05/03/20 05:11 HEMOGLOBIN/HEMATOCRIT,HH [HEME] Timed - Plan Plan:: Admit inpatient to unit S/P of term, viable NBF. Retained placenta, administer 2 grams ampicillin IV once for endometritis prophylaxis. Continue 60 mg nifedipine PO daily and hydrochlorothiazide 12.5 mg PO daily for CHTN management. Resume regular diet as tolerated. Plan to D/C epidural now, may ambulate with assistance in 2-4 hours or when sensation returns. If patient does not void within 6 hours S/P delivery, notify provider. support may be provided if desired or needed. Plan to collect CBC, CMP in am. See new orders. Dr. Dueñas notified and agreeable with POC.
[2020-05-03 06:11] LABS: BLOOD UREA NITROGEN,BUN 13 mg/dL (7.0-18.0); CARBON DIOXIDE,CO2 25.3 mmol/L (21.0-32.0); CHLORIDE,CL 105 mmol/L (98-107); GLUCOSE RANDOM 87 mg/dL (74-106); POTASSIUM,K 4.1 mmol/L (3.5-5.1); SODIUM,NA 138 mmol/L (136-145)
[2020-05-03] MEDS ORDERED: Hydrochlorothiazide 12.5 MG Cap PO SCH (09:00)
[2020-05-03] MEDS ORDERED: NIFEdipine 30 MG Tab.ER PO SCH (09:00)
--- NOTE | 2020-05-03 15:41 | PCM.DCSUM1 ---
Discharge Summary - Hospital Course Free Text/Narrative:: Todd is a 29 yo current PPD1 S/P of viable term NBF S/P IOL due to chronic HTN. O pos, RI, GBS positive with adequate ampicillin prophylaxis in labor. Retained placenta with prophylactic antibiotic administered IV once. Patient reports she is doing well with no complaints or concerns at this time. Hemodynamically stable with PO anti-hypertensives, afebrile. Breast and bottle feeding without difficulty. Ambulating, hydrating, eating, and voiding independently and without difficulty. Perineum intact. Patient verbalizes her desire to be discharged home today. Diagnosis: Stroke: No - Discharge Data Discharge Date: 05/03/20 Discharge Disposition: Home, Self-Care 01 Condition: Good - Referral to Home Health Primary Care Physician: PCP None - Discharge Diagnosis/Problem(s) (1) (spontaneous vaginal delivery) SNOMED Code(s): 291241366 ICD Code: O80 - ENCOUNTER FOR FULL-TERM UNCOMPLICATED DELIVERY Status: Acute Priority: High Current Visit: Yes (2) Chronic hypertension affecting SNOMED Code(s): 43258199 ICD Code: O10.919 - UNSP PRE-EXISTING HTN COMP , UNSP TRIMESTER Status: Acute Priority: High Current Visit: Yes (3) Lactating mother SNOMED Code(s): 148028499, 501336992 ICD Code: Z39.1 - ENCOUNTER FOR CARE AND EXAMINATION OF LACTATING MOTHER Status: Acute Priority: High Current Visit: Yes - Patient Instructions Diet: Usual Diet as Tolerated, Drink 8-10+ Glasses/Day Activity: As Tolerated, Bedrest, No Strenuous Activities Driving: May Drive Today Showering/Bathing: May Shower Showering/Bathing, Other: May sitz bath for perineal comfort. Notify Provider of: Fever, Increased Pain, Swelling and Redness, Drainage, Nausea and/or Vomiting - Discharge Plan *PRESCRIPTION DRUG MONITORING PROGRAM REVIEWED*: No *COPY OF PRESCRIPTION DRUG MONITORING REPORT IN PATIENT JUANA: No Prescriptions/Med Rec: Ibuprofen [Motrin] 800 mg PO Q8H PRN #90 tablet PRN Reason: Pain Home Medications: Home Meds Mv-Mn/Iron/FA/Herbal/Digestive [ One Tablet] 1 tab PO DAILY 11/26/19 [History] Ibuprofen [Motrin] 800 mg PO Q8H PRN #90 tablet 05/03/20 [Rx] NIFEdipine [Procardia XL] 60 mg PO DAILY tab.er 05/03/20 [Rx] hydroCHLOROthiazide [Hydrochlorothiazide] 12.5 mg PO DAILY cap 05/03/20 [Rx] Patient Handouts: Baby Blues, Hypertension, Care After Vaginal Delivery Referrals: Cherri Paz, CNM [Mid-] - (The clinic will call with your 1 week blood pressure appointment and 6 week follow-up appointment.) - Discharge Summary/Plan Comment DC Time >30 min.: Yes Discharge Summary/Plan Comment: Warning S/Ss, when to call for help discussed, no questions. RTO in 1 week for BP check or sooner if indicated. RTO in 6 weeks for visit, or sooner if problems occur. - General Info Date of Service: 05/03/20 Admission Dx/Problem (Free Text: Patient Status Order with Admit Dx/Problem 05/02/20 00:59 Patient Status [ADT] Routine Admission Diagnosis/Problem Admission Diagnosis/Problem 05/02/20 03:38 presenting to L&D at 37 4/7 weeks for induction of labor due to a complicated by chronic hypertension and history of incompetent cervix. She had a cerclage placed on 11/29/19; it was removed in-office by Dr. Dueñas on 02/26/20. Her hypertension is currently managed with 60 mg nifedipine PO daily and hydrochlorothiazide 12.5mg PO daily. Growth ultrasound on 03/24/20 noted EFW 2224 grams (91st percentile). She has had weekly NSTs since 32 weeks. O+, Rubella immune, GBS negative 05/02/20 03:56 Functional Status: Reports: Pain Controlled, Tolerating Diet, Ambulating, Urinating - Review of Systems General: Reports: No Symptoms HEENT: Reports: No Symptoms Pulmonary: Reports: No Symptoms Cardiovascular: Reports: No Symptoms Gastrointestinal: Reports: No Symptoms Genitourinary: Reports: No Symptoms Musculoskeletal: Reports: No Symptoms Skin: Reports: No Symptoms Neurological: Reports: No Symptoms Psychiatric: Reports: No Symptoms - Patient Data Vitals - Most Recent: Last Vital Signs Temp 98.0 F 05/03/20 08:00 Pulse 97 05/03/20 08:00 Resp 17 05/03/20 08:00 BP 133/81 05/03/20 10:30 Pulse Ox 98 05/03/20 08:00 Weight - Most Recent: 262 lb Lab Results - Last 24 hrs: Laboratory Results - last 24 hr 05/03/20 05/03/20 Range/Units 05:25 05:25 WBC 14.39 H (4.0-11.0) K/uL RBC 3.90 L (4.30-5.90) M/uL Hgb 10.2 L (12.0-16.0) g/dL Hct 28.9 L (36.0-46.0) % MCV 74.1 L (80.0-98.0) fL MCH 26.2 L (27.0-32.0) pg MCHC 35.3 (31.0-37.0) g/dL RDW Std Deviation 39.5 (28.0-62.0) fl RDW Coeff of Zeke 15 (11.0-15.0) % Plt Count 249 (150-400) K/uL MPV 11.80 (7.40-12.00) fL Neut % (Auto) 69.3 (48.0-80.0) % Lymph % (Auto) 20.5 (16.0-40.0) % [place] % (Auto) 9.4 (0.0-15.0) % Eos % (Auto) 0.7 (0.0-7.0) % Baso % (Auto) 0.1 (0.0-1.5) % Neut # (Auto) 10.0 H (1.4-5.7) K/uL Lymph # (Auto) 3.0 H (0.6-2.4) K/uL [place] # (Auto) 1.4 H (0.0-0.8) K/uL Eos # (Auto) 0.1 (0.0-0.7) K/uL Baso # (Auto) 0.0 (0.0-0.1) K/uL Nucleated RBC % 0.0 /100WBC Nucleated RBCs # 0 K/uL Sodium 138 (136-145) mmol/L Potassium 4.1 (3.5-5.1) mmol/L Chloride 105 (98-107) mmol/L Carbon Dioxide 25.3 (21.0-32.0) mmol/L BUN 13 (7.0-18.0) mg/dL Creatinine 0.9 (0.6-1.0) mg/dL Est Cr Clr Drug Dosing 81.50 mL/min Estimated GFR (MDRD) > 60.0 ml/min Glucose 87 (74-106) mg/dL Calcium 8.9 (8.5-10.1) mg/dL Total Bilirubin 0.2 (0.2-1.0) mg/dL AST 20 (15-37) IU/L ALT 18 (14-63) IU/L Alkaline Phosphatase 162 H (46-116) U/L Total Protein 6.0 L (6.4-8.2) g/dL Albumin 2.1 L (3.4-5.0) g/dL Globulin 3.9 (2.6-4.0) g/dL Albumin/Globulin Ratio 0.5 L (0.9-1.6) Med Orders - Current: Current Medications Acetaminophen (Acetaminophen 500 Mg Tab) 500 mg PO Q4H PRN PRN Reason: Pain Acetaminophen (Acetaminophen 500 Mg Tab) 1,000 mg PO Q4H PRN PRN Reason: Pain Benzocaine/Menthol (Benzocaine/Menthol 20%-0.5% [place] 78 Gm Cannister) 78 gm TOP ASDIRECTED PRN PRN Reason: Perineal Comfort Measure Last Admin: 05/02/20 20:38 Dose: 78 gram Documented by: Bisacodyl (Bisacodyl 10 Mg Supp) 10 mg RECTAL ONETIME PRN PRN Reason: Constipation Docusate Sodium (Docusate Sodium 100 Mg Cap) 100 mg PO BID PRN PRN Reason: Constipation Emollient Ointment (Lanolin 100% Cream 7 Gm Tube) 0 gm TOP ASDIRECTED PRN PRN Reason: Sore Nipples Hydrochlorothiazide (Hydrochlorothiazide 12.5 Mg Cap) 12.5 mg PO DAILY [facility] Last Admin: 05/03/20 09:33 Dose: 12.5 mg Documented by: Ibuprofen (Ibuprofen 400 Mg Tab) 400 mg PO Q4H PRN PRN Reason: Pain Ibuprofen (Ibuprofen 800 Mg Tab) 800 mg PO Q6H PRN PRN Reason: Pain Last Admin: 05/03/20 06:25 Dose: 800 mg Documented by: Nifedipine (Nifedipine 30 Mg Tab.Er) 60 mg PO DAILY [facility] Last Admin: 05/03/20 09:18 Dose: 60 mg Documented by: Oxycodone HCl (Oxycodone 5 Mg Tab) 5 mg PO Q2H PRN PRN Reason: Pain Witch Emilia (Witch Emilia Medicated Pads 40/Jar) 1 pad TOP ASDIRECTED PRN PRN Reason: comfort care Last Admin: 05/02/20 20:38 Dose: 1 pad Documented by: Discontinued Medications Ampicillin Sodium (Ampicillin 1 Gm Vial) Confirm Administered Dose 1 gm .ROUTE .STK-MED ONE Stop: 05/02/20 06:04 Last Admin: 05/02/20 06:26 Dose: 1 gm Documented by: Butorphanol Tartrate (Butorphanol 1 Mg/Ml Sdv) 1 mg IVPUSH Q1H PRN PRN Reason: Pain Carboprost Tromethamine (Carboprost Tromethamine 250 Mcg/1 Ml Amp) 250 mcg IM ASDIRECTED PRN PRN Reason: Post Hemorrhage Hydroxyzine HCl (Hydroxyzine Hcl 25 Mg Tab) 50 mg PO ONETIME ONE Stop: 05/02/20 02:42 Last Admin: 05/02/20 02:52 Dose: 50 mg Documented by: Oxytocin/Sodium Chloride (Oxytocin 30 Unit/500 Ml-Ns) 30 unit in 500 mls @ 999 mls/hr IV TITRATE MIRELLA Tranexamic Acid 1,000 mg/ (Sodium Chloride) 110 mls @ 660 mls/hr IV ONETIME PRN PRN Reason: Bleeding Oxytocin/Sodium Chloride (Oxytocin 30 Unit/500 Ml-Ns) 30 unit in 500 mls @ 2 mls/hr IV TITRATE [facility]; Protocol Last Titration: 05/02/20 16:27 Dose: 500 munits/min, 500 mls/hr Documented by: Ampicillin Sodium 2 gm/ Sodium (Chloride) 100 mls @ 200 mls/hr IV ONETIME ONE Stop: 05/02/20 01:59 Last Admin: 05/02/20 01:53 Dose: 200 mls/hr Documented by: Ampicillin Sodium 1 gm/ Sodium (Chloride) 50 mls @ 100 mls/hr IV Q4H [facility] Last Admin: 05/02/20 06:27 Dose: Not Given Documented by: Lactated Ringer's (Ringers, Lactated) 1,000 mls @ 150 mls/hr IV ASDIRECTED [facility] Last Admin: 05/02/20 11:31 Dose: 150 mls/hr Documented by: Sodium Chloride (Normal Saline) Confirm Administered Dose 50 mls @ as directed .ROUTE .STK-MED ONE Stop: 05/02/20 06:04 Last Admin: 05/02/20 06:26 Dose: 100 mls/hr Documented by: Ampicillin Sodium 1 gm/ Sodium (Chloride) 50 mls @ 100 mls/hr IV Q4H [facility] Last Admin: 05/02/20 15:15 Dose: 100 mls/hr Documented by: Fentanyl/Bupivacaine HCl (Fentanyl/Bupivacaine/Ns 2 Mcg-0.125% 250 Ml) Confirm Administered Dose 250 mls @ as directed .ROUTE .STK-MED ONE Stop: 05/02/20 10:40 Ampicillin Sodium 2 gm/ Sodium (Chloride) 100 mls @ 200 mls/hr IV ONETIME ONE Stop: 05/02/20 18:14 Last Admin: 05/02/20 18:07 Dose: 200 mls/hr Documented by: Lidocaine HCl (Lidocaine 1% 50 Ml Mdv) 50 ml INJECT ONETIME PRN PRN Reason: Laceration repair Methylergonovine Maleate (Methylergonovine 0.2 Mg/1 Ml Amp) 0.2 mg IM ASDIRECTED PRN PRN Reason: Post Hemorrhage Misoprostol (Misoprostol 200 Mcg Tab) 200 mcg PO ONETIME PRN PRN Reason: Post Hemorrhage Misoprostol (Misoprostol 25 Mcg (1/4 Of 100 Mcg) Tab) 25 mcg VAG ONETIME PRN PRN Reason: Cervical Ripening Last Admin: 05/02/20 01:58 Dose: 25 mcg Documented by: Misoprostol (Misoprostol 25 Mcg (1/4 Of 100 Mcg) Tab) 25 mcg VAG Q4H PRN PRN Reason: Cervical Ripening Misoprostol (Misoprostol 25 Mcg (1/4 Of 100 Mcg) Tab) 25 mcg PO ONETIME PRN PRN Reason: Cervical Ripening Last Admin: 05/02/20 01:58 Dose: 25 mcg Documented by: Misoprostol (Misoprostol 25 Mcg (1/4 Of 100 Mcg) Tab) 25 mcg PO Q4H PRN PRN Reason: Cervical Ripening Misoprostol (Misoprostol 25 Mcg (1/4 Of 100 Mcg) Tab) 50 mcg PO ONETIME ONE Stop: 05/02/20 09:26 Last Admin: 05/02/20 09:38 Dose: 50 mcg Documented by: Nalbuphine HCl (Nalbuphine 10 Mg/1 Ml Vial) 10 mg IVPUSH Q1H PRN PRN Reason: Pain (severe 7-10) Ondansetron HCl (Ondansetron 4 Mg/2 Ml Sdv) 4 mg IVPUSH Q6H PRN PRN Reason: Nausea/Vomiting Ropivacaine (Ropivacaine 0.2% Pf 2 Mg/Ml 20 Ml Sdv) Confirm Administered Dose 20 ml .ROUTE .[place] ONE Stop: 05/02/20 10:40 Last Admin: 05/03/20 08:17 Dose: Not Given Documented by: Sodium Chloride (Sodium Chloride 0.9% 10 Ml Syringe) 10 ml FLUSH ASDIRECTED PRN PRN Reason: Keep Vein Open Sodium Chloride (Sodium Chloride 0.9% 2.5 Ml Syringe) 2.5 ml FLUSH ASDIRECTED PRN PRN Reason: Keep Vein Open Sodium Chloride (Sodium Chloride 0.9% 10 Ml Sdv) 10 ml IV ASDIRECTED PRN PRN Reason: IV Use Sterile Water (Water For Irrigation,Sterile 1,000 Ml Container) 1,000 ml IRR ASDIRECTED PRN PRN Reason: delivery Terbutaline Sulfate (Terbutaline 1 Mg/Ml Sdv) 0.25 mg SUBCUT ASDIRECTED PRN PRN Reason: Tacysystole - Exam General: Reports: Alert, Oriented, Cooperative, No Acute Distress HEENT: Reports: Pupils Equal, Mucous Membr. Moist/[place] Neck: Reports: Supple Lungs: Reports: Clear to Auscultation, Normal Respiratory Effort Cardiovascular: Reports: Regular Rate, Regular Rhythm GI/Abdominal Exam: Normal Bowel Sounds, Soft, Non-Tender, No Organomegaly, No Distention (Female) Exam: Normal External Exam, Enlarged Uterus ( uterus, firm U-1), Vaginal Bleeding (Small to moderate rubra lochia, no clots.) Rectal (Female) Exam: Normal Exam, Normal Rectal Tone Back Exam: Reports: Normal Inspection, Full Range of Motion Extremities: Normal Inspection, Normal Range of Motion, Non-Tender, No Pedal Edema, Normal Capillary Refill Skin: Reports: Warm, Dry, Intact Neurological: Reports: No New Focal Deficit Psy/Mental Status: Reports: Alert, Normal Affect, Normal Mood
[2020-05-03 16:56] VITALS: BP 134/80; PULSE 104
== END 2020-05-03 19:10 | disposition home or self-care (01) | DRG 560 ==
LOC: MW.OBCHECK 00:34 → MW.OB 00:36 → MW.OBCHECK 00:59 → MW.OB 00:59 → OBSVTOIN 16:26 → MW.OB 21:00
PROVIDERS: ADMIT Obstetrics & Gynecology; ATTEND Obstetrics & Gynecology
PROC: 10E0XZZ Delivery of Products of Conception, External Approach (ICD-10-PCS; principal; 2020-05-02)
PROC: 10907ZC Drainage of Amniotic Fluid, Therapeutic from Products of Conception, Via Natural or Artificial Opening (ICD-10-PCS; 2020-05-02)
PROC: 3E0P7VZ Introduction of Hormone into Female Reproductive, Via Natural or Artificial Opening (ICD-10-PCS; 2020-05-02)
PROC: 3E0R3BZ Introduction of Anesthetic Agent into Spinal Canal, Percutaneous Approach (ICD-10-PCS; 2020-05-02)
DX: O10.92 Unspecified pre-existing hypertension complicating childbirth (principal); Z3A.37 37 weeks gestation of pregnancy; Z37.0 Single live birth; O99.824 Streptococcus B carrier state complicating childbirth; Z91.013 Allergy to seafood; Z20.822 Contact with and (suspected) exposure to COVID-19
CPT/HCPCS: 01967; 36415; 51702; 59025; 59409; 80053; 85025; 85027; 86592; 86850; 86900; 86901; A9270-GY; J0290; J2590; J3010; J7120; U0002

== ENCOUNTER 2021-04-01 12:08 | Day surgery (SDC) | payer BC ==
[2021-04-01] MEDS ORDERED: Midazolam 1 MG/ML 2 ML SDV ONE (12:30)
[2021-04-01] MEDS ORDERED: fentaNYL 100 MCG/2 ML SDV ONE (12:30)
[2021-04-01] MEDS ORDERED: Propofol 200 MG/20 ML SDV ONE ×2 (12:30→13:24)
[2021-04-01] MEDS ORDERED: Esmolol 100 MG/10 ML SDV ONE (12:36)
[2021-04-01] MEDS ORDERED: Lactated Ringers 1,000 ML IV SCH (12:45)
[2021-04-01] MEDS ORDERED: HYDROmorphone 1 MG/ML Syringe IVPUSH PRN (12:49)
[2021-04-01] MEDS ORDERED: Albuterol 0.083% 2.5 MG/3 ML Neb Soln NEB PRN (12:49)
[2021-04-01] MEDS ORDERED: Ondansetron 4 MG/2 ML SDV IVPUSH PRN (12:49)
[2021-04-01] MEDS ORDERED: fentaNYL 100 MCG/2 ML SDV IVPUSH PRN (12:49)
[2021-04-01] MEDS ORDERED: Naloxone 0.4 MG/ML SDV IVPUSH PRN (12:49)
[2021-04-01] MEDS ORDERED: Metoclopramide 10 MG/2 ML SDV IVPUSH PRN (12:49)
[2021-04-01] MEDS ORDERED: Dexamethasone 4 MG/ML 5 ML MDV ONE (13:33)
[2021-04-01] MEDS ORDERED: Sugammadex Sodium 200 MG/2 ML VIAL ONE (13:33)
[2021-04-01] MEDS ORDERED: Ondansetron 4 MG/2 ML SDV ONE (13:33)
[2021-04-01] MEDS ORDERED: Ketorolac 30 MG/ML SDV ONE (13:33)
[2021-04-01] MEDS ORDERED: Octyl 2-Cyanoacrylate 1 Tube ONE (13:38)
[2021-04-01 15:47] VITALS: BP 123/74; PULSE 77
== END 2021-04-01 16:00 | disposition home or self-care (01) ==
LOC: MW.SDS 12:08
PROVIDERS: ATTEND Obstetrics & Gynecology
DX: O00.102 Left tubal pregnancy without intrauterine pregnancy (principal); I10 Essential (primary) hypertension; E66.01 Morbid (severe) obesity due to excess calories; Z68.39 Body mass index [BMI] 39.0-39.9, adult; Z91.013 Allergy to seafood; Z79.899 Other long term (current) drug therapy
CPT/HCPCS: 36415; 49329; 59151; 85027; 86850; 86900; 86901; A9270; J0131; J1100; J1885; J2250; J2405; J2704; J3490; J7120; 00840; J3010

== ENCOUNTER 2021-05-05 01:28 | Emergency (ER) | payer BC ==
[2021-05-05] MEDS ORDERED: Acetaminophen/oxyCODONE 325-10 MG Tab PO STA (02:22)
[2021-05-05 02:26] LABS: POTASSIUM,K 3.6 mmol/L (3.5-5.1)
[2021-05-05 02:43] VITALS: BP 127/68; PULSE 97
== END 2021-05-05 02:43 | disposition home or self-care (01) ==
LOC: MW.ED 01:28
DX: N39.0 Urinary tract infection, site not specified (principal); M54.9 Dorsalgia, unspecified; I10 Essential (primary) hypertension; E66.9 Obesity, unspecified; Z68.39 Body mass index [BMI] 39.0-39.9, adult; Z91.013 Allergy to seafood; Z79.899 Other long term (current) drug therapy; Z86.16 Personal history of COVID-19
CPT/HCPCS: 36415; 80053; 81001; 83690; 84703; 85025; 87086; 99284; A9270

== ENCOUNTER 2021-09-08 22:19 | Observation (INO) | payer BC, OTHER ==
[2021-09-08] MEDS ORDERED: diphenhydrAMINE 50 MG/ML SDV IVPUSH ONE (22:34)
[2021-09-08] MEDS ORDERED: Sodium Chloride 0.9% 1,000 ML IV ONE (22:34)
[2021-09-08] MEDS ORDERED: methylPREDNISolone Sodium Succinate 125 MG/2 ML SDV IVPUSH ONE (22:34)
[2021-09-08] MEDS ORDERED: Sodium Chloride 0.9% 2.5 ML Syringe FLUSH PRN (22:34)
[2021-09-08] MEDS ORDERED: Sodium Chloride 0.9% 10 ML Syringe FLUSH PRN (22:34)
[2021-09-08] MEDS ORDERED: Ondansetron 4 MG/2 ML SDV IVPUSH ONE ×2 (22:34→23:09)
[2021-09-08] MEDS ORDERED: Ketorolac 30 MG/ML SDV IVPUSH ONE (23:09)
[2021-09-08] MEDS ORDERED: fentaNYL 50 MCG/ML SDV IVPUSH ONE (23:09)
[2021-09-08 23:32] LABS: CARBON DIOXIDE,CO2 28.1 mmol/L (21.0-32.0); POTASSIUM,K 3.6 mmol/L (3.5-5.1)
[2021-09-09] MEDS ORDERED: Iopamidol 755 MG/ML 500 ML Multipack Bottle IVPUSH STA (00:20)
[2021-09-09] MEDS ORDERED: fentaNYL 50 MCG/ML SDV IVPUSH STA (01:38)
[2021-09-09] MEDS ORDERED: HYDROmorphone 1 MG/ML Syringe IVPUSH ONE (03:12)
[2021-09-09] MEDS ORDERED: Piperacillin/Tazobactam 4.5 GM in Sodium Chloride 0.9% 100 ML IV ONE (03:19)
[2021-09-09] MEDS ORDERED: HYDROmorphone 2 MG/ML Syringe IVPUSH PRN (03:49)
[2021-09-09] MEDS ORDERED: Ondansetron 4 MG/2 ML SDV IVPUSH PRN (03:49)
[2021-09-09] MEDS: Lactated Ringers 1,000 ML IV SCH (05:04)
[2021-09-09] MEDS ORDERED: Sodium Chloride 0.9% 2.5 ML Syringe FLUSH PRN (09:07)
[2021-09-09] MEDS ORDERED: diphenhydrAMINE 50 MG/ML SDV IVPUSH PRN (09:07)
[2021-09-09] MEDS ORDERED: Sodium Chloride 0.9% 10 ML Syringe FLUSH PRN (09:07)
[2021-09-09] MEDS ORDERED: Sodium Chloride 0.9% 20 ML SDV IV PRN (09:07)
[2021-09-09] MEDS ORDERED: Scopolamine 1.5 MG Transdermal Patch TRDERM SCH (09:30)
[2021-09-09] MEDS: Hydrochlorothiazide/Losartan 12.5-50 mg Tab PO SCH (10:16)
[2021-09-10] MEDS ORDERED: Metoclopramide 10 MG/2 ML SDV IVPUSH PRN (01:52)
[2021-09-10] MEDS ORDERED: Naloxone 0.4 MG/ML SDV IVPUSH PRN (01:52)
[2021-09-10] MEDS ORDERED: Morphine 4 MG/ML VIAL IVPUSH PRN (01:52)
[2021-09-10] MEDS ORDERED: Albuterol 0.083% 2.5 MG/3 ML Neb Soln NEB PRN (01:52)
[2021-09-10] MEDS ORDERED: Ondansetron 4 MG/2 ML SDV IVPUSH PRN (01:52)
[2021-09-10] MEDS ORDERED: fentaNYL 50 MCG/ML SDV IVPUSH PRN (01:52)
[2021-09-10] MEDS ORDERED: HYDROmorphone 1 MG/ML Syringe IVPUSH PRN (01:52)
[2021-09-10] MEDS: Lactated Ringers 1,000 ML IV SCH ×2 (07:56→14:33)
[2021-09-10] MEDS: Hydrochlorothiazide/Losartan 12.5-50 mg Tab PO SCH (08:29)
[2021-09-10] MEDS ORDERED: Bupivacaine 0.5% 30 ML SDV ONE (10:23)
[2021-09-10] MEDS ORDERED: Dexamethasone 4 MG/ML 5 ML MDV ONE (10:43)
[2021-09-10] MEDS ORDERED: Propofol 200 MG/20 ML SDV ONE (10:43)
[2021-09-10] MEDS ORDERED: Dexmedetomidine 200 MCG/2 ML SDV ONE (10:43)
[2021-09-10] MEDS ORDERED: fentaNYL 100 MCG/2 ML SDV ONE (10:43)
[2021-09-10] MEDS ORDERED: Water For Injection, Sterile 20 ML ONE (10:44)
[2021-09-10] MEDS ORDERED: Rocuronium Bromide 50 MG/5 ML Syringe ONE ×2 (10:48→11:50)
[2021-09-10] MEDS ORDERED: Ropivacaine 0.5% 5 MG/ML 30 ML SDV ONE (10:53)
[2021-09-10] MEDS ORDERED: cefOXitin 100 ML ONE (11:07)
[2021-09-10] MEDS ORDERED: Esmolol 100 MG/10 ML SDV ONE (11:30)
[2021-09-10] MEDS ORDERED: Indocyanine Green 25 MG SDV ONE (11:34)
[2021-09-10] MEDS ORDERED: Ketorolac 30 MG/ML SDV ONE (12:12)
[2021-09-10] MEDS ORDERED: Ondansetron 4 MG/2 ML SDV ONE (12:12)
[2021-09-10] MEDS ORDERED: Sugammadex Sodium 200 MG/2 ML VIAL ONE (12:12)
[2021-09-10] MEDS ORDERED: Metoprolol Tartrate 5 MG/5 ML SDV IVPUSH ONE (16:29)
[2021-09-10] MEDS ORDERED: Hydrochlorothiazide/Losartan 12.5-50 mg Tab PO ONE (17:47)
[2021-09-10] MEDS: Acetaminophen/HYDROcodone 325-5 MG Tab PO PRN (17:53)
[2021-09-10] MEDS ORDERED: hydrALAZINE 20 MG/ML SDV IVPUSH PRN (18:16)
[2021-09-10] MEDS ORDERED: Ketorolac 30 MG/ML SDV IVPUSH PRN (18:30)
[2021-09-10] MEDS: Cyclobenzaprine 5 MG Tab PO SCH ×2 (19:15→21:45)
[2021-09-11] MEDS: Cyclobenzaprine 5 MG Tab PO SCH (06:05)
[2021-09-11] MEDS: Acetaminophen/HYDROcodone 325-5 MG Tab PO PRN (08:03)
[2021-09-11] MEDS ORDERED: Hydrochlorothiazide/Losartan 12.5-50 mg Tab PO SCH ×4 (09:00)
[2021-09-11 12:02] VITALS: BP 168/99; PULSE 59
== END 2021-09-11 12:20 | disposition home or self-care (01) ==
LOC: MW.ED 22:19 → MW.MS 09-09 03:46 → INTOOBSV 09-09 03:46
PROVIDERS: ADMIT Surgery; ATTEND Surgery
DX: K80.12 Calculus of gallbladder with acute and chronic cholecystitis without obstruction (principal); I10 Essential (primary) hypertension; Z79.899 Other long term (current) drug therapy; Z91.013 Allergy to seafood; Z98.890 Other specified postprocedural states; E66.9 Obesity, unspecified; Z86.16 Personal history of COVID-19; Z20.822 Contact with and (suspected) exposure to COVID-19
CPT/HCPCS: 36415; 47562; 74177; 76705; 80053; 81003; 83605; 83690; 84703; 85025; 87635; 96361; 96374; 96375; 96376; 99285; A9270; G0378; J0131; J0360; J0694; J1100; J1170; J1200; J1885; J2405; J2543; J2704; J2795; J2930; J3010; J3490; J7030; J7120; Q9967; 00790; 64488; 99284; U0002